=== PATIENT | female | born 1930 | race Caucasian/White ===

== ENCOUNTER 2016-10-25 16:52 | Inpatient (IN) | payer MEDICARE, OTHER ==
[~2016-10-25] VITALS: Ht 160 cm; Wt 63.0 kg
[2016-10-25] MEDS ORDERED: BYSTOLIC5 MG ORAL (17:12)
[2016-10-25] MEDS ORDERED: VELTASSA8.4 GM PO (17:13)
[2016-10-25] MEDS ORDERED: TRADJENTA5 MG PO (17:14)
[2016-10-25] MEDS ORDERED: TRAZODONE HCL50 MG ORAL (17:16)
[2016-10-25] MEDS ORDERED: BRINTELLIX10 MG PO (17:19)
[2016-10-25] MEDS ORDERED: FLUTICASONE PRO16 G1 NASAL (17:20)
[2016-10-25] MEDS ORDERED: KLONOPIN0.5 MG ORAL (17:21)
[2016-10-25] MEDS ORDERED: DONEPEZIL HCL5 MG ORAL (17:22)
--- NOTE | 2016-10-25 17:22 | Emergency Room Report ---
History of Present Illness General Chief Complaint: Fever Source: Patient, Family Member, EMS Present Illness HPI 86 YOF BIBEMS from home with polyuria, fever 103F, chills. History of frequent UTI, admitted to hospital for sepsis 1 year ago. Otherwise denies recent abd pain, nausea/vomiting, chest pain, SOB, diarrhea, sick contacts, foreign travel. Got Tylenol prior to EMS arrival, not afebrile on scene. No other VS instability noted. Allergies: Coded Allergies: CITRUS AND DERIVATIVES (Verified Allergy, Severe, Hives/Rash and Throat swelling, 10/25/16) Reported by pt's daughter STRAWBERRY (Verified Allergy, Severe, Hives/Rash and Throat swelling, 10/25) Reported by pt's daughter SULFA (SULFONAMIDE ANTIBIOTICS) (Verified Allergy, Severe, Hives, 10/25/16) Patient History Past Medical History: other - Dementia, frequent UTI Past Surgical History: none Pertinent Family History: none Social History: Denies: alcohol use, drug use, smoking Now: No Immunizations: UTD Reviewed Nursing Documentation: PMH: Agreed, PSxH: Agreed Nursing Documentation-PMH Past Medical History: No History, Except For Hx Hypertension: Yes Hx Diabetes: Yes Review of Systems All Other Systems: negative except mentioned in HPI Physical Exam Vital Signs Date Time Temp Pulse Resp B/P Pulse Ox O2 Delivery O2 Flow Rate FiO2 10/25/16 16:46 98.1 91 15 131/66 95 Room Air Sp02 EP Interpretation: reviewed, normal General Appearance: normal inspection, alert, GCS 15, non-toxic, moderate distress Head: normocephalic, atraumatic Eyes: bilateral eye EOMI, bilateral eye PERRL ENT: normal ENT inspection, hearing grossly normal, normal voice, dry mucus membranes Neck: normal inspection, full range of motion, supple, no bony tend Respiratory: normal inspection, lungs clear, normal breath sounds, no respiratory distress, no retraction, no wheezing Cardiovascular #1: regular rate, rhythm, no edema Genitourinary: no CVA tenderness Musculoskeletal: normal inspection, back normal, normal range of motion, Walt' s Sign negative Neurologic: normal inspection, alert, oriented x3, responsive, application engineer III-XII nml as tested, motor strength/tone normal, speech normal Psychiatric: normal inspection, judgement/insight normal, mood/affect normal Skin: normal inspection, normal color, no rash Medical Decision Making Medicare Attestation Rudy Brown MD hereby attest that the medical record entry for date of service, 07/09/16 accurately reflects signatures/notations that I made in my capacity as MD when I treated/diagnosed the above listed Medicare beneficiary. I attest that this information is true, accurate and complete to the best of my knowledge. I understand that any falsification, omission, or concealment of material fact may subject me to administrative, civil, or criminal liability. This patient warrants hospital admission for extreme of age and has a condition that cannot be treated as outpatient. Diagnostic Impression: Primary Impression: Fever Qualified Codes: R50.9 - Fever, unspecified Additional Impressions: UTI (urinary tract infection) Qualified Codes: N30.01 - Acute cystitis with hematuria Sepsis Qualified Codes: A41.9 - Sepsis, unspecified organism ER Course Fever/chills and polyuria at home. History of sepsis. VSS, afebrile here Patient looks uncomfortable, chills PLAN Sepsis workup, labs, Abx Likely admission Rhythm Strip Diag. Results EP Interpretation: yes Rate: 80 Rhythm: NSR, no PVC's, no ectopy Reevaluation Time: 18:01 Last Vital Signs Date Time Temp Pulse Resp B/P Pulse Ox O2 Delivery O2 Flow Rate FiO2 10/25/16 16:46 98.1 91 15 131/66 95 Room Air Status: improved Reevaluation Impression Leuks 16K. Lactate 2.5 UA: Nitrite positive Empiric Zosyn given Urine and Blood Cx pending Urosepsis Endorsed to Dr Grossman as covering physician for PMD Dr Dallas at 621pm. for tele admission Disposition: ADMITTED INPATIENT Condition: Serious - - RUDY BROWN M.D. Oct 25, 2016 17:22
[2016-10-25] MEDS ORDERED: ARTIFICIAL TEAR15 ML BOTH EYES (17:23)
[2016-10-25] MEDS ORDERED: TYLENOL EXTRA500 MG ORAL (17:25)
[2016-10-25] MEDS ORDERED: ZOLPIDEM TARTRAT5 MG ORAL (17:26)
[2016-10-25] MEDS ORDERED: NEXIUM40 MG ORAL (17:29)
[2016-10-25] MEDS ORDERED: METFORMIN HCL750 MG ORAL (17:29)
[2016-10-25] MEDS ORDERED: ZANTAC150 MG ORAL (17:30)
[2016-10-25] MEDS ORDERED: VITAMIN D1000 UNI1 ORAL (17:32)
[2016-10-25] MEDS ORDERED: VITAMIN B-250 MG PO (17:35)
[2016-10-25] MEDS ORDERED: VITAMIN B-1250 MCG PO (17:36)
[2016-10-25] MEDS ORDERED: CRESTOR10 M2 ORAL (17:37)
[2016-10-25 17:44] VITALS: BP 141/59
[2016-10-25 17:57] LABS: APPEARANCE,URINE CLEAR; KETONES,URINE NEGATIVE (NEGATIVE); LEUKOCYTE ESTERASE ,URINE 1+ (NEGATIVE); NITRITE,URINE POSITIVE (NEGATIVE); PH,URINE 8 (4.5-8.0); PROTEIN,URINE NEGATIVE (NEGATIVE); UROBILINOGEN,URINE NORMAL MG/DL (0.0-1.0)
[2016-10-25] MEDS ORDERED: Zosyn 4.5gm inj ONE (17:57)
[2016-10-25 18:15] LABS: CHLORIDE 91 mEQ/L (98-107); POTASSIUM 3.9 mEQ/L (3.4-4.9); SODIUM 134 mEQ/L (135-145); TROPONIN I < 0.30 ng/mL (<=0.30)
[2016-10-25 18:17] LABS: AMORPHOUS SEDIMENT,UR FEW /LPF; BACTERIA,URINE MANY /HPF; RBC,URINE 0-2 /HPF (0 - 2); SQUAMOUS EPITHELIAL CELL,UR FEW /LPF (NONE/OCC)
[2016-10-25 18:21] LABS: REFLEX LACTIC ACID YES OR NO YES
[2016-10-25 18:22] LABS: ALANINE AMINOTRANSFERASE 6 U/L (3-33); ALBUMIN/GLOBULIN RATIO 1.2 (1.0-2.7); ANION GAP 23 (5-15); ASPARTATE AMINO TRANSFERASE 12 U/L (5-40); CALCIUM 9.2 mg/dL (8.6-10.2); CARBON DIOXIDE 20 mEQ/L (20-30); CREATININE 0.9 mg/dL (0.5-0.9); HEMOLYSIS 13; TOTAL PROTEIN 7.1 g/dL (6.6-8.7)
[2016-10-25 18:24] LABS: CKMB < 1.5 ng/mL (< 3.8)
[2016-10-25 19:20] LABS: BASOPHILS % (AUTO) 0.5 % (0.0-2.0); EOSINOPHILS % (AUTO) 0.9 % (0.0-3.0); LYMPHOCYTES % (AUTO) 12.8 % (20.0-45.0); MEAN CORPUSCULAR HGB CONC 32.5 G/DL (32.0-36.0); MEAN CORPUSCULAR VOLUME 92 FL (80-99); MEAN PLATELET VOLUME 6.6 FL (6.5-10.1); MONOCYTES % (AUTO) 8.3 % (1.0-10.0); NEUTROPHILS % (AUTO) 77.5 % (45.0-75.0); PLATELET COUNT 232 K/UL (150-450); RED BLOOD COUNT 3.53 M/UL (4.20-5.40); RED CELL DISTRIBUTION WIDTH 13.4 % (11.6-14.8); WHITE BLOOD COUNT 16.1 K/UL (4.8-10.8)
[2016-10-25 19:59] VITALS: BP 162/81
[2016-10-25] MEDS ORDERED: Piperacillin/Tazobactam 4.5 GM in NS 110 ML IV SCH (22:00)
[2016-10-25] MEDS ORDERED: Cefepime 1gm vial ONE (22:02)
[2016-10-25 22:23] VITALS: BP 129/59
[2016-10-26] VITALS (9 sets, daily range): BP systolic 112–159; BP diastolic 51–79
[2016-10-26] MEDS: Artificial Tears 1.4% Op Soln BOTH EYES SCH ×4 (10:00→21:16)
--- NOTE | 2016-10-26 10:00 | Diagnostic Imaging Report ---
Indication: SOB Technique: One view of the chest Comparison: none Findings: There is some atelectasis and crowding of the markings at the left lung base. Projection is lordotic. The heart size is normal. There are degenerative changes of both shoulders Impression: Left basilar atelectasis. No acute process otherwise This agrees with the preliminary interpretation provided by the emergency room physician
[2016-10-26] MEDS: Bystolic 2.5mg Tab ORAL SCH (12:40)
[2016-10-26] MEDS: Donepezil 5mg Tab ORAL SCH (12:41)
[2016-10-26 12:43] LABS: BASOPHILS % (AUTO) 0.5 % (0.0-2.0); EOSINOPHILS % (AUTO) 0.8 % (0.0-3.0); LYMPHOCYTES % (AUTO) 14.8 % (20.0-45.0); MEAN CORPUSCULAR HGB CONC 33.4 G/DL (32.0-36.0); MEAN CORPUSCULAR VOLUME 90 FL (80-99); MEAN PLATELET VOLUME 7.2 FL (6.5-10.1); MONOCYTES % (AUTO) 8.1 % (1.0-10.0); NEUTROPHILS % (AUTO) 75.8 % (45.0-75.0); PLATELET COUNT 256 K/UL (150-450); RED BLOOD COUNT 3.93 M/UL (4.20-5.40); RED CELL DISTRIBUTION WIDTH 13.4 % (11.6-14.8); WHITE BLOOD COUNT 11.9 K/UL (4.8-10.8)
--- NOTE | 2016-10-26 18:18 | Consultation ---
DATE OF CONSULTATION: 10/26/2016 CONSULTING PHYSICIAN: Lee Hinson M.D. REFERRING PHYSICIAN: Allen Grossman M.D. REASON FOR CONSULTATION: Fever. HISTORY OF PRESENTING ILLNESS: This is an 87-year-old lady with history of dementia as well as diabetes and hypertension who comes in with fever and chills. She also has some shortness of breath. She was found to have urinary tract infection and an Infectious Diseases consultation has been obtained for antibiotics. PAST MEDICAL HISTORY: 1. History of dementia. 2. Diabetes. 3. History of hypertension. MEDICATIONS: She does not smoke, drink, or use drugs. FAMILY HISTORY: Noncontributory. REVIEW OF SYSTEMS: Respiratory: She had fever and chills. She has shortness of breath. No cough. No chest pain. Cardiac: No chest pain. No palpitations. No dizziness. No syncope. Gastrointestinal: No nausea. No vomiting. No abdominal pain or diarrhea. MEDICATIONS: As an inpatient, the patient is on subcutaneous heparin, clonazepam trazodone, ranitidine, Artificial Tears, Protonix, Aricept, Bystolic, cefepime, and Tylenol. ALLERGIES: 1. Sulfa. 2. [place]. 3. [place] and derivatives. PHYSICAL EXAMINATION: VITAL SIGNS: Temperature of 98.8, T-max of 99.9, pulse of 82, respiratory rate of 18, blood pressure 159/78, and O2 saturation of 91%. HEENT: Pupils are equally reactive to light and accommodation. Mouth appears clean without thrush. NECK: Supple. No adenopathy. No JVD. CARDIOVASCULAR: Regular rate and rhythm. No murmurs. LUNGS: Clear to auscultation bilaterally. No crackles. No wheezes. ABDOMEN: Soft and nontender. No organomegaly. EXTREMITIES: No cyanosis, no clubbing, no edema. LABORATORY DATA: White count 16.1, hemoglobin 10.6, hematocrit 32.6, MCV 92, platelet count of 232,000, and neutrophils of 77%. Sodium 134, potassium 3.9, chloride 91, bicarbonate 20, BUN 17, creatinine 0.9, glucose 118, and calcium 9.2. Total bilirubin 0.8, AST 12, ALT 6, and alkaline phosphatase 59. CK of 70, CK-MB less than 1.5, and troponin less than 0.3. Total protein 7.1 and albumin of 4. UA is showing 2 to 4 white cells. Chest x-ray showed left base atelectasis. Blood cultures are pending. ASSESSMENT: 1. This is an 86-year-old lady with history of dementia, diabetes, and hypertension, who comes in with fevers with a concern regarding urinary tract infection. 2. We also concerned regarding pneumonia. PLAN: 1. Continue cefepime. 2. We will order urine cultures. 3. We will follow up blood cultures. 4. We will follow up cultures and adjust antibiotics accordingly. I would like to thank, Dr. Grossman, for this consultation. Lee Hinson M.D. DR: CARLOS JOB#: [id number] CC:
--- NOTE | 2016-10-26 19:48 | History and Physical Report ---
DATE OF ADMISSION: 10/25/2016 REASON FOR ADMISSION: Sepsis and fevers. HISTORY OF PRESENT ILLNESS: The patient is an 86-year-old female brought in from home with polyuria and fever of 103 degrees. The patient with severe urinary tract infection, was admitted previously with sepsis. The patient denies any other associated symptoms. No abdominal pain. No nausea. No vomiting. No chest pain. No shortness of breath. No diarrhea. The patient was seen and evaluated in the emergency room and started on IV antibiotics. Labs were obtained with concerns for possible urinary source. The patient is comfortable at present. She has been started on home medications as well as IV antibiotics. ID evaluation has been called. The patient with noted leukocytosis. Urinalysis did show only 2 to 4 white cells. The patient denied any pain at this time. She is comfortable. PAST MEDICAL HISTORY: Notable for, 1. Dementia. 2. Severe urinary tract infection. 3. Prior history of sepsis. MEDICATIONS: Reviewed. ALLERGIES: Reviewed. SOCIAL HISTORY: The patient is retired and unemployed. She is a [place] Citizen descent. She lives at home. FAMILY HISTORY: Otherwise noncontributory. REVIEW OF SYSTEMS: Otherwise negative with the exception of the above. PHYSICAL EXAMINATION: GENERAL: A well developed female, comfortable. VITAL SIGNS: Blood pressure 154/61, respiratory rate 22, saturation 97% on room air, pulse 70, and temperature 98.7 degrees. T-max 105 degrees. HEENT: Fairly negative. Oropharynx is clear. No thrush. NECK: Supple. No lymphadenopathy. LUNGS: Moderate breath sounds. No rhonchi. No wheezes. CARDIAC: Normal S1 and S2. Regular rhythm. Positive murmur. No rubs or gallops. ABDOMEN: Soft and nontender. No hepatosplenomegaly. EXTREMITIES: No cyanosis. No clubbing. No edema. NEUROLOGIC: Nonfocal. LABORATORY AND DIAGNOSTIC DATA: Lab data reviewed. Sodium 134, chloride 91, blood sugar is 118, lactic acid 2.5. White cell count 16, hemoglobin 10.6, hematocrit 32, and platelets 232,000. Urinalysis reviewed. IMPRESSION: 1. Leukocytosis. 2. Fever. 3. Possible sepsis. 4. Possible urinary tract infection. 5. Anemia. 6. History of dementia. RECOMMENDATIONS: medications at home reviewed. IV Cefepime, ID evaluation, follow clinically and recommend further, monitor for change and continue with support clinically. We will continue to manage and monitor and optimize care. Care reviewed and discussed. We will discharge the patient once improved. will discuss with family Allen Grossman M.D. DR: BETSY JOB#: [id number] CC: YULIANA
[2016-10-26] MEDS ORDERED: clonazePAM 0.5mg tab ORAL PRN (21:00)
[2016-10-26] MEDS ORDERED: TraZODone 50mg tab ORAL PRN (21:00)
[2016-10-26] MEDS: Heparin 5000 units/ml inj SUBQ SCH (21:15)
[2016-10-27] VITALS: BP 152/76
[2016-10-27 04:00] VITALS: BP 122/74
[2016-10-27 04:48] LABS: BASOPHILS % (AUTO) 0.6 % (0.0-2.0); EOSINOPHILS % (AUTO) 0.7 % (0.0-3.0); MEAN CORPUSCULAR HEMOGLOBIN 29.4 PG (27.0-31.0); MEAN CORPUSCULAR HGB CONC 32.4 G/DL (32.0-36.0); MEAN CORPUSCULAR VOLUME 91 FL (80-99); MEAN PLATELET VOLUME 7.4 FL (6.5-10.1); MONOCYTES % (AUTO) 9.1 % (1.0-10.0); NEUTROPHILS % (AUTO) 69.6 % (45.0-75.0); PLATELET COUNT 270 K/UL (150-450); RED BLOOD COUNT 4.24 M/UL (4.20-5.40); RED CELL DISTRIBUTION WIDTH 13.7 % (11.6-14.8); WHITE BLOOD COUNT 11.8 K/UL (4.8-10.8)
[2016-10-27 05:20] LABS: ANION GAP 17 (5-15); CALCIUM 8.9 mg/dL (8.6-10.2); CARBON DIOXIDE 24 mEQ/L (20-30); CHLORIDE 99 mEQ/L (98-107); CREATININE 0.8 mg/dL (0.5-0.9); HEMOLYSIS 4; POTASSIUM 4.4 mEQ/L (3.4-4.9); SODIUM 140 mEQ/L (135-145)
[2016-10-27 08:00] VITALS: BP 160/82
[2016-10-27] MEDS: Bystolic 2.5mg Tab ORAL SCH (08:44)
[2016-10-27] MEDS: Donepezil 5mg Tab ORAL SCH (08:44)
[2016-10-27] MEDS: Heparin 5000 units/ml inj SUBQ SCH ×2 (08:47→20:45)
[2016-10-27] MEDS: Artificial Tears 1.4% Op Soln BOTH EYES SCH ×4 (08:49→20:42)
--- NOTE | 2016-10-27 08:52 | General Progress Note ---
Assessment/Plan Assessment/Plan IMPRESSION: 1. Leukocytosis. 2. Fever. 3. Possible sepsis. 4. Possible urinary tract infection. 5. Anemia. 6. History of dementia. PLAN care noted IV antibiotics ID follow up hydrate sitter monitor for confusion UTI noted;taper antibiotics impression, plan, and exam edited and reviewed in detail care discussed with RN Subjective Allergies: Coded Allergies: CITRUS AND DERIVATIVES (Verified Allergy, Severe, Hives/Rash and Throat swelling, 10/25/16) Reported by pt's daughter STRAWBERRY (Verified Allergy, Severe, Hives/Rash and Throat swelling, 10/25) Reported by pt's daughter SULFA (SULFONAMIDE ANTIBIOTICS) (Verified Allergy, Severe, Hives, 10/25/16) Subjective overall with some confusion sitter ordered Objective Last 24 Hour Vital Signs Date Time Temp Pulse Resp B/P Pulse Ox O2 Delivery O2 Flow Rate FiO2 10/27/16 04:00 82 10/27/16 04:00 98.1 110 18 122/74 98 Nasal Cannula 3.0 10/27/16 00:00 97.9 84 17 152/76 96 Nasal Cannula 3.0 10/27/16 00:00 72 10/26/16 20:00 97.2 82 16 146/78 96 Nasal Cannula 3.0 10/26/16 20:00 74 10/26/16 16:00 70 10/26/16 16:00 97.7 67 16 112/51 97 Nasal Cannula 3.0 10/26/16 12:00 68 10/26/16 12:00 97.5 70 18 144/79 91 Room Air 10/26/16 09:00 98.8 82 18 159/78 91 Room Air Intake and Output 10/26/16 10/27/16 19:00 07:00 Intake Total 1480 ml 1377 ml Balance 1480 ml 1377 ml Intake Oral 480 ml 220 ml IV Total 1000 ml 1157 ml # Voids 2 5 # Bowel Movements 2 Laboratory Tests 10/26/16 12:20: White Blood Count 11.9H, Red Blood Count 3.93L, Hemoglobin 11.8L, Hematocrit 35.3L, Mean Corpuscular Volume 90, Mean Corpuscular Hemoglobin 30.0, Mean Corpuscular Hemoglobin Concent 33.4, Red Cell Distribution Width 13.4, Platelet Count 256, Mean Platelet Volume 7.2, Neutrophils (%) (Auto) 75.8H, Lymphocytes ( %) (Auto) 14.8L, Monocytes (%) (Auto) 8.1, Eosinophils (%) (Auto) 0.8, Basophils (%) (Auto) 0.5 10/27/16 03:55: White Blood Count 11.8H, Red Blood Count 4.24, Hemoglobin 12.5, Hematocrit 38.6 , Mean Corpuscular Volume 91, Mean Corpuscular Hemoglobin 29.4, Mean Corpuscular Hemoglobin Concent 32.4, Red Cell Distribution Width 13.7, Platelet Count 270, Mean Platelet Volume 7.4, Neutrophils (%) (Auto) 69.6, Lymphocytes (% ) (Auto) 20.0, Monocytes (%) (Auto) 9.1, Eosinophils (%) (Auto) 0.7, Basophils ( %) (Auto) 0.6, Sodium Level 140, Potassium Level 4.4, Chloride Level 99, Carbon Dioxide Level 24, Anion Gap 17H, Blood Urea Nitrogen 9, Creatinine 0.8, Estimat Glomerular Filtration Rate , Glucose Level 155H, Calcium Level 8.9 Height (Feet): 5 Height (Inches): 3.00 Weight (Pounds): 139 Objective GENERAL: A well developed female, comfortable.but confused HEENT: Fairly negative. Oropharynx is clear. No thrush. NECK: Supple. No lymphadenopathy. LUNGS: Moderate breath sounds. No rhonchi. No wheezes. CARDIAC: Normal S1 and S2. Regular rhythm. Positive murmur. No rubs or gallops. ABDOMEN: Soft and nontender. No hepatosplenomegaly. EXTREMITIES: No cyanosis. No clubbing. No edema. NEUROLOGIC: Nonfocal. OSCAR TOLEDO Oct 27, 2016 08:52
[2016-10-27 12:00] VITALS: BP 132/77
[2016-10-27] MEDS ORDERED: LORazepam Inj 2mg/ml 1ml IV PRN (12:15)
--- NOTE | 2016-10-27 12:46 | Neurology Progress Note ---
Objective Physical Exam Last Vital Signs Date Time Temp Pulse Resp B/P Pulse Ox O2 Delivery O2 Flow Rate FiO2 10/27/16 08:00 79 10/27/16 08:00 96.6 23 160/82 100 10/27/16 04:00 Nasal Cannula 3.0 Laboratory Tests Test 10/27/16 03:55 White Blood Count 11.8 K/UL (4.8-10.8) H Red Blood Count 4.24 M/UL (4.20-5.40) Hemoglobin 12.5 G/DL (12.0-16.0) Hematocrit 38.6 % (37.0-47.0) Mean Corpuscular Volume 91 FL (80-99) Mean Corpuscular Hemoglobin 29.4 PG (27.0-31.0) Mean Corpuscular Hemoglobin Concent 32.4 G/DL (32.0-36.0) Red Cell Distribution Width 13.7 % (11.6-14.8) Platelet Count 270 K/UL (150-450) Mean Platelet Volume 7.4 FL (6.5-10.1) Neutrophils (%) (Auto) 69.6 % (45.0-75.0) Lymphocytes (%) (Auto) 20.0 % (20.0-45.0) Monocytes (%) (Auto) 9.1 % (1.0-10.0) Eosinophils (%) (Auto) 0.7 % (0.0-3.0) Basophils (%) (Auto) 0.6 % (0.0-2.0) Sodium Level 140 mEQ/L (135-145) Potassium Level 4.4 mEQ/L (3.4-4.9) Chloride Level 99 mEQ/L (98-107) Carbon Dioxide Level 24 mEQ/L (20-30) Anion Gap 17 (5-15) H Blood Urea Nitrogen 9 mg/dL (7-23) Creatinine 0.8 mg/dL (0.5-0.9) Estimat Glomerular Filtration Rate mL/min (>60) Glucose Level 155 mg/dL (74-106) H Calcium Level 8.9 mg/dL (8.6-10.2) Impression/Recommendations Problems: (1) Acute delirium (2) Sepsis (3) UTI (urinary tract infection) (4) Dementia arising in the senium and presenium (5) hearing and vision loss Status: not improved Recommendations #[id number] PROSPER DUBOIS Oct 27, 2016 12:46
[2016-10-27 16:00] VITALS: BP 139/77
--- NOTE | 2016-10-27 18:56 | Cardiology Report ---
APPROVED REPORT EKG Measurement Heart [id number] Sinus rhythm with premature supraventricular complexes Septal infarct, age undetermined Abnormal ECG
[2016-10-27 20:00] VITALS: BP 140/81
[2016-10-27] MEDS: TraZODone 50mg tab ORAL SCH (20:43)
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
[2016-10-28 00:04] VITALS: BP 139/69
[2016-10-28 04:08] VITALS: BP 154/72
[2016-10-28 07:55] LABS: ANION GAP 14 (5-15); CALCIUM 8.2 mg/dL (8.6-10.2); CARBON DIOXIDE 24 mEQ/L (20-30); CHLORIDE 105 mEQ/L (98-107); CREATININE 0.8 mg/dL (0.5-0.9); HEMOLYSIS 0; POTASSIUM 4.2 mEQ/L (3.4-4.9); SODIUM 143 mEQ/L (135-145)
[2016-10-28 08:00] VITALS: BP 129/67
[2016-10-28] MEDS: Bystolic 2.5mg Tab ORAL SCH (08:23)
[2016-10-28] MEDS: Artificial Tears 1.4% Op Soln BOTH EYES SCH ×4 (08:23→21:43)
[2016-10-28] MEDS: Donepezil 5mg Tab ORAL SCH (08:24)
[2016-10-28] MEDS: Heparin 5000 units/ml inj SUBQ SCH ×2 (08:26→21:45)
--- NOTE | 2016-10-28 09:20 | Infectious Diseases Prog Note ---
Assessment/Plan Assessment/Plan A: UTI with E. coli Atelectasis, ? pneumonia Delirium Dementia DM HPN P: change Cefepime to Levaquin Continue Antibiotic X 4 days Subjective ROS Limited/Unobtainable: Yes Respiratory: Reports: productive cough Genitourinary: Reports: no symptoms Neurologic: Reports: confusion, other - improved Musculoskeletal: Reports: no symptoms Allergies: Coded Allergies: CITRUS AND DERIVATIVES (Verified Allergy, Severe, Hives/Rash and Throat swelling, 10/25/16) Reported by pt's daughter STRAWBERRY (Verified Allergy, Severe, Hives/Rash and Throat swelling, 10/25) Reported by pt's daughter SULFA (SULFONAMIDE ANTIBIOTICS) (Verified Allergy, Severe, Hives, 10/25/16) Objective Vital Signs Last 24 Hour Vital Signs Date Time Temp Pulse Resp B/P Pulse Ox O2 Delivery O2 Flow Rate FiO2 10/28/16 08:00 98.1 71 20 129/67 96 10/28/16 04:30 99.0 10/28/16 04:08 99.8 64 18 154/72 98 Room Air 10/28/16 04:00 68 10/28/16 00:04 98.1 78 18 139/69 94 Room Air 10/28/16 00:00 83 10/27/16 20:00 97.5 95 18 140/81 93 Room Air 10/27/16 20:00 68 10/27/16 16:00 97.8 91 18 139/77 95 Room Air 10/27/16 16:00 80 10/27/16 12:00 98.2 86 21 132/77 100 Nasal Cannula 10/27/16 12:00 82 Height (Feet): 5 Height (Inches): 3.00 Weight (Pounds): 139 General Appearance: no acute distress HEENT: status post trach Respiratory/Chest: lungs clear Cardiovascular: normal rate Abdomen: soft, non tender Extremities: no edema Neurologic/Psychiatric: alert, responsive Microbiology Date/Time Source Procedure Growth Status 10/25/16 17:40 Blood Blood Culture - Preliminary NO GROWTH AFTER 48 HOURS Resulted 10/25/16 17:20 Blood Blood Culture - Preliminary NO GROWTH AFTER 48 HOURS Resulted 10/25/16 17:39 Urine,Clean Catch Urine Culture - Final Escherichia Coli Complete Laboratory Tests Test 10/28/16 04:45 Sodium Level 143 mEQ/L (135-145) Potassium Level 4.2 mEQ/L (3.4-4.9) Chloride Level 105 mEQ/L (98-107) Carbon Dioxide Level 24 mEQ/L (20-30) Anion Gap 14 (5-15) Blood Urea Nitrogen 13 mg/dL (7-23) Creatinine 0.8 mg/dL (0.5-0.9) Estimat Glomerular Filtration Rate mL/min (>60) Glucose Level 158 mg/dL (74-106) H Calcium Level 8.2 mg/dL (8.6-10.2) L Current Medications Medications (Trade) Dose Ordered Sig/Ronel Route PRN Reason Start Time Stop Time Status Last Admin Dose Admin Acetaminophen (Tylenol) 650 mg Q4H PRN ORAL Mild Pain (Pain Scale 1-3) 10/25/16 18:45 11/24/16 18:44 Artificial Tears (Akwa-Tears) 1 drop QID BOTH EYES 10/26/16 10:00 11/25/16 09:59 10/28/16 08:23 Cefepime HCl/ Dextrose (Maxipime/D5W) 50 ml @ 100 mls/hr Q24H IVPB 10/25/16 22:00 11/01/16 21:59 10/27/16 21:18 Dextrose STAT PRN IV Hypoglycemia 10/25/16 18:45 11/24/16 18:44 Donepezil HCl (Aricept) 5 mg DAILY ORAL 10/26/16 09:00 11/25/16 08:59 10/28/16 08:24 Heparin Sodium (Porcine) (Heparin 5000 units/ml) 5,000 units Q12HR SUBQ 10/26/16 22:00 11/25/16 21:59 10/28/16 08:26 Insulin Aspart (NovoLOG) BEFORE MEALS AND HS SUBQ 10/28/16 11:30 11/27/16 11:29 Lorazepam (Ativan 2mg/ml 1ml) 0.5 mg Q4H PRN IV For Anxiety 10/27/16 12:15 11/03/16 12:14 Nebivolol (Bystolic) 5 mg DAILY ORAL 10/26/16 09:00 11/25/16 08:59 10/28/16 08:23 Pantoprazole (Protonix) 40 mg DAILY ORAL 10/26/16 09:00 11/25/16 08:59 10/28/16 08:24 Quetiapine Fumarate (SEROquel) 12.5 mg Q12HR ORAL 10/27/16 12:30 11/26/16 12:29 10/28/16 08:23 Ranitidine HCl (Zantac) 150 mg QPM ORAL 10/26/16 16:30 11/25/16 16:29 10/27/16 16:57 Sodium Chloride (Sodium Chloride 1000ml bag) 1,000 ml @ 100 mls/hr Q10H IVLG 10/25/16 22:00 11/24/16 21:59 10/27/16 23:50 Trazodone HCl (Desyrel) 100 mg BEDTIME ORAL 10/27/16 21:00 11/26/16 20:59 10/27/16 20:43 CELESTINE CARABALLO Oct 28, 2016 09:20
[2016-10-28] MEDS ORDERED: NovoLOG Insulin Flexpen SUBQ SCH (11:30)
[2016-10-28 12:00] VITALS: BP 117/64
[2016-10-28 16:00] VITALS: BP 141/79
--- NOTE | 2016-10-28 16:29 | General Progress Note ---
Assessment/Plan Assessment/Plan IMPRESSION: 1. Leukocytosis. 2. Fever. 3. Possible sepsis. 4. Possible urinary tract infection. 5. Anemia. 6. History of dementia. PLAN care noted IV antibiotics now po ID follow up noted hydrate sitter neuro noted; trazadone and antipsychotics added will hope to dc in am d/w daughter and consider home health impression, plan, and exam edited and reviewed in detail care discussed with RN Subjective Allergies: Coded Allergies: CITRUS AND DERIVATIVES (Verified Allergy, Severe, Hives/Rash and Throat swelling, 10/25/16) Reported by pt's daughter LEVOFLOXACIN (Verified Allergy, Severe, Hives, 10/28/16) Pt reported feeling hot, difficulty breathing, and feeling as having heart attack. Signs: erythema, labored breathing STRAWBERRY (Verified Allergy, Severe, Hives/Rash and Throat swelling, 10/25) Reported by pt's daughter SULFA (SULFONAMIDE ANTIBIOTICS) (Verified Allergy, Severe, Hives, 10/25/16) Subjective d/w daughter neuro appreciated Objective Last 24 Hour Vital Signs Date Time Temp Pulse Resp B/P Pulse Ox O2 Delivery O2 Flow Rate FiO2 10/28/16 12:00 97.6 77 20 117/64 99 Room Air 10/28/16 08:00 98.1 71 20 129/67 96 10/28/16 08:00 81 10/28/16 04:30 99.0 10/28/16 04:08 99.8 64 18 154/72 98 Room Air 10/28/16 04:00 68 10/28/16 00:04 98.1 78 18 139/69 94 Room Air 10/28/16 00:00 83 10/27/16 20:00 97.5 95 18 140/81 93 Room Air 10/27/16 20:00 68 Intake and Output 10/27/16 10/28/16 19:00 07:00 Intake Total 1020 ml 1380 ml Balance 1020 ml 1380 ml Intake Oral 120 ml 300 ml IV Total 900 ml 1080 ml # Voids 2 6 Laboratory Tests 10/28/16 04:45: Sodium Level 143, Potassium Level 4.2, Chloride Level 105, Carbon Dioxide Level 24, Anion Gap 14, Blood Urea Nitrogen 13, Creatinine 0.8, Estimat Glomerular Filtration Rate , Glucose Level 158H, Calcium Level 8.2L Height (Feet): 5 Height (Inches): 3.00 Weight (Pounds): 139 Objective GENERAL: A well developed female, comfortable.but confused HEENT: Fairly negative. Oropharynx is clear. No thrush. NECK: Supple. No lymphadenopathy. LUNGS: Moderate breath sounds. No rhonchi. No wheezes. CARDIAC: Normal S1 and S2. Regular rhythm. Positive murmur. No rubs or gallops. ABDOMEN: Soft and nontender. No hepatosplenomegaly. EXTREMITIES: No cyanosis. No clubbing. No edema. NEUROLOGIC: Nonfocal. OSCAR TOLEDO Oct 28, 2016 16:29
[2016-10-28 20:00] VITALS: BP 167/87
[2016-10-28] MEDS ORDERED: metFORMIN 500mg tab ORAL SCH (21:00)
[2016-10-28] MEDS: TraZODone 50mg tab ORAL SCH (21:43)
[2016-10-28] MEDS ORDERED: Levofloxacin 500mg tab ORAL SCH (22:00)
[2016-10-29 00:17] VITALS: BP 149/86
[2016-10-29 04:04] VITALS: BP 141/76
[2016-10-29 07:50] LABS: ANION GAP 16 (5-15); CALCIUM 8.8 mg/dL (8.6-10.2); CARBON DIOXIDE 25 mEQ/L (20-30); CHLORIDE 100 mEQ/L (98-107); CREATININE 0.8 mg/dL (0.5-0.9); HEMOLYSIS 5; POTASSIUM 3.9 mEQ/L (3.4-4.9); SODIUM 141 mEQ/L (135-145)
[2016-10-29 08:00] VITALS: BP 155/80
--- NOTE | 2016-10-29 08:29 | General Progress Note ---
Assessment/Plan Assessment/Plan IMPRESSION: 1. Leukocytosis. 2. Fever. 3. Possible sepsis. 4. Possible urinary tract infection. 5. Anemia. 6. History of dementia. PLAN care noted po antibiotics ID follow up noted and clearance hydrate sitter trazadone and antipsychotics noted ?reyes dc today with impression, plan, and exam edited and reviewed in detail care discussed with RN Subjective Allergies: Coded Allergies: CITRUS AND DERIVATIVES (Verified Allergy, Severe, Hives/Rash and Throat swelling, 10/25/16) Reported by pt's daughter LEVOFLOXACIN (Verified Allergy, Severe, Hives, 10/28/16) Pt reported feeling hot, difficulty breathing, and feeling as having heart attack. Signs: erythema, labored breathing STRAWBERRY (Verified Allergy, Severe, Hives/Rash and Throat swelling, 10/25) Reported by pt's daughter SULFA (SULFONAMIDE ANTIBIOTICS) (Verified Allergy, Severe, Hives, 10/25/16) Subjective d/w daughter stable overall Objective Last 24 Hour Vital Signs Date Time Temp Pulse Resp B/P Pulse Ox O2 Delivery O2 Flow Rate FiO2 10/29/16 04:04 98.1 71 19 141/76 95 Room Air 10/29/16 00:17 98.3 84 18 149/86 95 Room Air 10/28/16 20:00 99.7 84 19 167/87 95 10/28/16 16:00 98.1 75 18 141/79 95 Room Air 10/28/16 12:00 97.6 77 20 117/64 99 Room Air 10/28/16 12:00 76 Intake and Output 10/28/16 10/29/16 19:00 07:00 Intake Total 1550 ml 1150 ml Balance 1550 ml 1150 ml Intake Oral 450 ml 50 ml IV Total 1100 ml 1100 ml # Voids 4 4 # Bowel Movements 2 1 Laboratory Tests 10/29/16 04:45: Sodium Level 141, Potassium Level 3.9, Chloride Level 100, Carbon Dioxide Level 25, Anion Gap 16H, Blood Urea Nitrogen 10, Creatinine 0.8, Estimat Glomerular Filtration Rate , Glucose Level 141H, Calcium Level 8.8 Height (Feet): 5 Height (Inches): 3.00 Weight (Pounds): 139 Objective GENERAL: A well developed female, comfortable.NAD HEENT: Fairly negative. Oropharynx is clear. No thrush. NECK: Supple. No lymphadenopathy. LUNGS: Moderate breath sounds. No rhonchi. No wheezes. CARDIAC: Normal S1 and S2. Regular rhythm. Positive murmur. No rubs or gallops. ABDOMEN: Soft and nontender. No hepatosplenomegaly. EXTREMITIES: No cyanosis. No clubbing. No edema. NEUROLOGIC: Nonfocal. OSCAR TOLEDO Oct 29, 2016 08:29
[2016-10-29] MEDS: Artificial Tears 1.4% Op Soln BOTH EYES SCH (08:38)
[2016-10-29] MEDS: Bystolic 2.5mg Tab ORAL SCH (08:39)
[2016-10-29] MEDS: Donepezil 5mg Tab ORAL SCH (08:40)
[2016-10-29] MEDS: Heparin 5000 units/ml inj SUBQ SCH (08:42)
[2016-10-29] MEDS ORDERED: metFORMIN 500mg tab ORAL SCH (09:00)
--- NOTE | 2016-10-29 10:34 | Infectious Diseases Prog Note ---
Assessment/Plan Assessment/Plan antibiotics : augmentin A 1. e.coli UTI 2. DM 3. HTN 4. leucocytosis resolved P 1. continue augmentin 2 more days po 2. will follow up cultures Subjective ROS Limited/Unobtainable: Yes Allergies: Coded Allergies: CITRUS AND DERIVATIVES (Verified Allergy, Severe, Hives/Rash and Throat swelling, 10/25/16) Reported by pt's daughter LEVOFLOXACIN (Verified Allergy, Severe, Hives, 10/28/16) Pt reported feeling hot, difficulty breathing, and feeling as having heart attack. Signs: erythema, labored breathing STRAWBERRY (Verified Allergy, Severe, Hives/Rash and Throat swelling, 10/25) Reported by pt's daughter SULFA (SULFONAMIDE ANTIBIOTICS) (Verified Allergy, Severe, Hives, 10/25/16) Objective Vital Signs Last 24 Hour Vital Signs Date Time Temp Pulse Resp B/P Pulse Ox O2 Delivery O2 Flow Rate FiO2 10/29/16 08:00 99.7 80 19 155/80 95 Room Air 10/29/16 04:04 98.1 71 19 141/76 95 Room Air 10/29/16 00:17 98.3 84 18 149/86 95 Room Air 10/28/16 20:00 99.7 84 19 167/87 95 10/28/16 16:00 98.1 75 18 141/79 95 Room Air 10/28/16 12:00 97.6 77 20 117/64 99 Room Air 10/28/16 12:00 76 Height (Feet): 5 Height (Inches): 3.00 Weight (Pounds): 139 Respiratory/Chest: lungs clear Cardiovascular: normal rate, regular rhythm, no gallop/murmur Abdomen: soft, non tender Extremities: no edema Laboratory Tests Test 10/29/16 04:45 Sodium Level 141 mEQ/L (135-145) Potassium Level 3.9 mEQ/L (3.4-4.9) Chloride Level 100 mEQ/L (98-107) Carbon Dioxide Level 25 mEQ/L (20-30) Anion Gap 16 (5-15) H Blood Urea Nitrogen 10 mg/dL (7-23) Creatinine 0.8 mg/dL (0.5-0.9) Estimat Glomerular Filtration Rate mL/min (>60) Glucose Level 141 mg/dL (74-106) H Calcium Level 8.8 mg/dL (8.6-10.2) WALTER LOYD Oct 29, 2016 10:34
[2016-10-31] MEDS ORDERED: AUGMENTIN 875-1 EAC1 ORAL (10:31)
--- NOTE | 2016-10-31 10:38 | Discharge Summary ---
Discharge Summary Hospital Course Date of Admission Oct 25, 2016 at 18:05 Date of Discharge Oct 29, 2016 at 10:05 Admitting Diagnosis sepsis HPI Niurka Carlton is a 86 year old female who was admitted on Oct 25, 2016 at 18: 05 for Sepsis Hospital Course dc summary #[id number] Discharge Medications New Medications: Amoxicillin/Potassium Clav 875-125* (Augmentin 875-125 Tablet*) 1 Each Tablet 1 TAB ORAL TWICE A DAY, #4 TAB Continued Medications: Acetaminophen* (Tylenol Extra Strength*) 500 Mg Tablet 1000 MG ORAL Q6H PRN for Fever/Headache/Mild Pain Cholecalciferol (Vitamin D3)* (Vitamin D*) 1,000 Unit Tablet 2000 UNITS ORAL DAILY Clonazepam* (Klonopin*) 0.5 Mg Tablet 0.5 MG ORAL QHS PRN for For Anxiety Cyanocobalamin (Vitamin B-12) (Vitamin B-12) 50 Mcg Tablet 50 MCG PO DAILY, TAB Dextran 70/Hypromellose (Artificial Tears Eye Drops*) 15 Ml Drops 1 DROP BOTH EYES QID, #15 ML 0 Refills Donepezil Hcl* (Donepezil Hcl*) 5 Mg Tablet 5 MG ORAL DAILY, TAB Esomeprazole Magnesium (Nexium) 40 Mg Capsule.dr 40 MG ORAL DAILY, CAP Linagliptin (Tradjenta) 5 Mg Tablet 5 MG PO DAILY, TAB Metformin Hcl (Metformin Hcl Er) 750 Mg Tab.er.24h 750 MG ORAL DAILY Nebivolol Hcl (Bystolic) 5 Mg Tablet 5 MG ORAL DAILY, TAB Patiromer Calcium Sorbitex (Veltassa) 8.4 Gm Powd.pack 8.4 GM PO QOD Ranitidine Hcl* (Zantac*) 150 Mg Tablet 150 MG ORAL QPM Riboflavin (Vitamin B-2) 50 Mg Tablet 50 MG PO DAILY, TAB Rosuvastatin Calcium* (Crestor*) 10 Mg Tablet 10 MG ORAL DAILY Trazodone Hcl* (Desyrel*) 50 Mg Tablet 50 MG ORAL BEDTIME PRN for Insomnia, TAB Vortioxetine Hydrobromide (Brintellix) 10 Mg Tablet 10 MG PO EVERY MORNING Discharge Condition Upon Discharge: stable Discharge Disposition Patient was discharged to Home with Home Health(06) Discharge Diagnoses: Discharge Instructions Discharge Instructions Special Instructions I have been assigned to complete a D/C Summary on this account. I was not involved in the patient management Kwame ([facility])Fiordaliza NP Oct 31, 2016 10:38
--- NOTE | 2016-11-01 08:38 | Discharge Summary 2 SIG ---
DATE OF ADMISSION: 10/25/2016 DATE OF DISCHARGE: 10/29/2016 REASON FOR ADMISSION: 86-year-old female was brought to the emergency room with fever of 103 and chills. The patient has a history of frequent urinary tract infection. The patient denied abdominal pain, nausea, vomiting, or diarrhea. There was no chest pain or shortness of breath. The patient denied sick contacts or foreign travel.Tylenol was given at home prior to arrival by the paramedics. The patient was afebrile on scene. The patient has a past medical history of hypertension, diabetes, and dementia. Workup in the emergency room revealed leukocytosis of 16 and lactate- 2.5. Urinalysis revealed positive nitrite. The patient was started on empiric antibiotics. Patient started on gentle IV fluids. Patient was admitted to the hospital for further management. ADMITTING DIAGNOSES: 1. Possible sepsis. 2. Urinary tract infection. 3. Fever. 4. Dementia. 5. Anemia. HOSPITAL COURSE: Urinalysis was positive for nitrite and showed many bacteria and +1 leukocyte esterase. The patient was started on the IV fluids and IV antibiotics. ID consult was requested. Urine culture grew E. coli. Blood culture were negative. Antibiotic regimen optimized based on sensitivity. The patient was discharged home on additional two days of Augmentin as per ID recommendation. Leukocytosis trending down, on 10/27/2016 was 11.8. The patient afebrile. Blood pressure was stable. Pulse oximetry stable on room air. The patient with underlying dementia, became more confused initially. Neurology consult was requested. Neurologist concluded that the patient had acute delirium, which was multifactorial, likely secondary to infection and chronic dementia as well as sensory deprivation. He recommended tp continue treatment with IV fluids and antibiotics, and encouraged family to stay as much as possible. He recommended a sitter at the bedside. Medication regimen optimized. The patient was started on Seroquel, dose of trazodone was increased and Ativan as needed was added to existing regimen. With clinical improvement, mental status back to baseline. Blood pressure was managed with the current regimen and was stable. Blood sugar was managed with anti-glycemic regimen and was stable. Hemoglobin and hematocrit at baseline. The patient was stable for discharge. DISCHARGE DIAGNOSES: 1. Possible sepsis. 2. Urinary tract infection with a history of recurrent urinary tract infection. 3. Anemia, stable. 4. Acute delirium, multifactorial on chronic dementia. 5. Chronic dementia. 6. Diabetes mellitus. 7. Hypertension. DISCHARGE MEDICATIONS: See medication reconciliation list. Two additional days of Augmentin as recommended by ID. DISCHARGE INSTRUCTIONS: Follow up with the primary medical doctor. OSCAR TOLEDO M.D. I have been assigned to dictate discharge summary on this account and I was not involved in the patient's management. Fiordaliza Puente ([place]) N.PDilia DR: YULIANA JOB#: [id number] CC: YULIANA
== END 2016-10-29 10:05 | disposition home health service (06) | DRG 872 ==
LOC: EDBD 16:52 → EMR 18:00 → 2W 18:05 → EDBEDREQ 18:15 → 2E 10-27 15:11
DX: A41.9 Sepsis, unspecified organism (principal); N39.0 Urinary tract infection, site not specified; F03.90 Unspecified dementia, unspecified severity, without behavioral disturbance, psychotic disturbance, mood disturbance, and anxiety; F05 Delirium due to known physiological condition; E11.9 Type 2 diabetes mellitus without complications; I10 Essential (primary) hypertension; B96.20 Unspecified Escherichia coli [E. coli] as the cause of diseases classified elsewhere; D64.9 Anemia, unspecified; R41.0 Disorientation, unspecified; Z88.2 Allergy status to sulfonamides; H54.42 Blindness, left eye, normal vision right eye; H91.90 Unspecified hearing loss, unspecified ear
CPT/HCPCS: 36415; 71010; 80048; 80053; 81003; 82550; 82553; 82962; 83605; 84484; 85025; 87040; 87086; 87181; 93005; J1815